=== PATIENT | male | born 1965 | race Caucasian/White ===

== ENCOUNTER 2021-03-02 10:01 | Inpatient (IN) ==
[2021-03-02] MEDS ORDERED: Albuterol/Ipratropium NEB.SOL (2.5/0.5 MG) 3 ML NEB.SOLN INH ONE (10:17)
[2021-03-02] MEDS ORDERED: methylPREDNISolone 125 mg 2 ML VIAL IV ONE (10:23)
[2021-03-02] MEDS ORDERED: Albuterol 2.5mg/3 ml (0.083%) NEB.SOLN INH ONE (10:24)
[2021-03-02 10:46] LABS: ABS Eosinophils 0.2 10^3/ul (0-0.6); ABS Lymphocytes 0.9 10^3/ul (1.0-4.8); ABS Monocytes 1.2 10^3/ul (0-0.8); ABS Neutrophils 11.4 10^3/ul (1.5-7.7); Eosinophil % 1.3 %; Hematocrit 46 % (42-52); Hemoglobin 15.9 g/dL (14.0-18.0); Lymphocyte % 6.4 %; Mean Corpuscular HGB Conc 35 g/dL (31-36); Mean Corpuscular Hemoglobin 31 pg (27-31); Mean Corpuscular Volume 88 fL (80-94); Mean Platelet Volume 8.7 fL (7.4-10.4); Platelet Count 447 10^3/uL (150-450); Red Blood Count 5.21 10^6 /uL (4.18-5.48); Red Cell Distribution Width 13 % (10-15); White Blood Count 13.7 10^3/uL (3.5-10.8)
[2021-03-02] MEDS ORDERED: Magnesium Sulfate 2 gm BAG 2 GM/50 ML BAG IVPB ONE (10:57)
[2021-03-02] MEDS ORDERED: Albuterol 0.5% CONC CONTINUOUS NEB.SOL 5 mg/ml 20 ml BOT INH ONE (10:59)
[2021-03-02 11:03] LABS: Albumin 3.9 g/dL (3.2-5.2); Albumin/Globulin Ratio 1.3 (1-3); Calcium 9.1 mg/dL (8.6-10.3); EGFR African American 124.1 (>60); EGFR Non-African American 102.6 (>60); Total Bilirubin 0.7 mg/dL (0.2-1.0); Total Protein 6.9 g/dL (6.4-8.9)
[2021-03-02] MEDS ORDERED: Al Hydrox/Mg Hydrox/Simet LIQ 30 ML UDC PO PRN (13:56)
[2021-03-02] MEDS ORDERED: Ondansetron 4 mg VIAL 2 MG/ML 2 ml VIAL IV PRN (13:56)
[2021-03-02] MEDS ORDERED: Levalbuterol HFA INHALER MDI INH PRN (14:06)
[2021-03-02] MEDS ORDERED: Levalbuterol 0.63MG/3ML NEB UNIT OF USE INH PRN (14:09)
[2021-03-02] MEDS: Albuterol/Ipratropium NEB.SOL (2.5/0.5 MG) 3 ML NEB.SOLN INH SCH ×2 (14:52→21:10)
[2021-03-02] MEDS: Enoxaparin 40 MG/0.4 ML SYR SUBCUT SCH (17:59)
[2021-03-03] MEDS: Albuterol/Ipratropium NEB.SOL (2.5/0.5 MG) 3 ML NEB.SOLN INH SCH ×4 (03:36→20:03)
[2021-03-03 05:31] LABS: ABS Basophils 0.1 10^3/ul (0-0.2); ABS Lymphocytes 1.3 10^3/ul (1.0-4.8); ABS Monocytes 1.5 10^3/ul (0-0.8); ABS Neutrophils 10.9 10^3/ul (1.5-7.7); Eosinophil % 0.2 %; Hematocrit 39 % (42-52); Hemoglobin 13.5 g/dL (14.0-18.0); Lymphocyte % 9.6 %; Mean Corpuscular HGB Conc 35 g/dL (31-36); Mean Corpuscular Hemoglobin 31 pg (27-31); Mean Corpuscular Volume 88 fL (80-94); Mean Platelet Volume 8.4 fL (7.4-10.4); Platelet Count 380 10^3/uL (150-450); Red Blood Count 4.39 10^6 /uL (4.18-5.48); Red Cell Distribution Width 13 % (10-15); White Blood Count 13.8 10^3/uL (3.5-10.8)
[2021-03-03 05:50] LABS: Calcium 8.7 mg/dL (8.6-10.3); EGFR African American 133.9 (>60); EGFR Non-African American 110.6 (>60); Potassium 3.9 mmol/L (3.5-5.0)
[2021-03-03] MEDS: Enoxaparin 40 MG/0.4 ML SYR SUBCUT SCH (17:27)
[2021-03-03 17:45] LABS: Vitamin D Total 25(OH) 18.4 ng/mL (20-50)
[2021-03-04] MEDS: Albuterol/Ipratropium NEB.SOL (2.5/0.5 MG) 3 ML NEB.SOLN INH SCH ×3 (02:04→13:44)
[2021-03-04 06:28] LABS: ABS Eosinophils 0.1 10^3/ul (0-0.6); ABS Lymphocytes 2.2 10^3/ul (1.0-4.8); ABS Monocytes 0.9 10^3/ul (0-0.8); ABS Neutrophils 8.3 10^3/ul (1.5-7.7); Eosinophil % 0.7 %; Hematocrit 37 % (42-52); Hemoglobin 12.6 g/dL (14.0-18.0); Lymphocyte % 19.3 %; Mean Corpuscular HGB Conc 34 g/dL (31-36); Mean Corpuscular Hemoglobin 30 pg (27-31); Mean Corpuscular Volume 90 fL (80-94); Mean Platelet Volume 8.7 fL (7.4-10.4); Platelet Count 398 10^3/uL (150-450); Red Blood Count 4.18 10^6 /uL (4.18-5.48); Red Cell Distribution Width 13 % (10-15); White Blood Count 11.5 10^3/uL (3.5-10.8)
[2021-03-04 06:47] LABS: Calcium 8.9 mg/dL (8.6-10.3); EGFR African American 127.9 (>60); EGFR Non-African American 105.7 (>60); Potassium 3.9 mmol/L (3.5-5.0)
[2021-03-04] MEDS ORDERED: Cholecalciferol (VIT D3) 1,000 unit TAB PO ONE (08:30)
[2021-03-04 12:41] VITALS: BP 118/71
[2021-03-04] MEDS: Enoxaparin 40 MG/0.4 ML SYR SUBCUT SCH (13:56)
== END 2021-03-04 15:20 | disposition home or self-care (01) | DRG 140 ==
LOC: ED 10:01 → MED 13:56
PROVIDERS: ADMIT Hospitalist; ATTEND Hospitalist

== ENCOUNTER 2021-04-09 01:42 | Inpatient (IN) ==
[2021-04-09] MEDS ORDERED: Midazolam 10 mg/10 ml VIAL 1 mg/ml 10 ml VIAL (10 mg) ONE (01:49)
[2021-04-09] MEDS ORDERED: Succinylcholine 200 mg VIAL 20 mg/ml 10 ml VIAL (200 mg) ONE (01:49)
[2021-04-09] MEDS ORDERED: Etomidate 40 mg/20 ml (2 MG/ML) 20 ml VIAL (40 mg) ONE (01:49)
[2021-04-09] MEDS ORDERED: Propofol 10 mg/ml 100 ML BTL 100 ML ONE (01:50)
[2021-04-09] MEDS ORDERED: Magnesium Sulfate 2 gm BAG 2 GM/50 ML BAG ONE (01:52)
[2021-04-09] MEDS ORDERED: NS 0.9% 1000 ml BAG 2,000 ML IV ONE (01:58)
[2021-04-09] MEDS ORDERED: Cefepime 2 GM in NS 0.9% 50 ML 50 ML IVPB ONE (01:58)
[2021-04-09] MEDS ORDERED: Magnesium Sulfate 2 gm BAG 2 GM/50 ML BAG IVPB ONE (01:59)
[2021-04-09] MEDS ORDERED: fentaNYL 100 mcg/2 ml 50 MCG/ML VIAL IV SLOW PU ONE (02:00)
[2021-04-09] MEDS ORDERED: methylPREDNISolone 125 mg 2 ML VIAL IV ONE (02:00)
[2021-04-09] MEDS ORDERED: methylPREDNISolone 125 mg 2 ML VIAL ONE (02:01)
[2021-04-09] MEDS ORDERED: NS 0.9% 50 ML 0 ML ONE (02:10)
[2021-04-09 02:23] LABS: ABS Basophils 0.1 10^3/ul (0-0.2); ABS Eosinophils 0.9 10^3/ul (0-0.6); ABS Lymphocytes 4.1 10^3/ul (4.0-13.5); ABS Monocytes 1.3 10^3/ul (0-0.8); Eosinophil % 6.1 %; Hematocrit 41 % (31-38); Hemoglobin 13.5 g/dL (10.3-14.1); Lymphocyte % 26.8 %; Mean Corpuscular HGB Conc 33 g/dL (32-37); Mean Corpuscular Hemoglobin 30 pg (24-30); Mean Corpuscular Volume 93 fL (68-85); Mean Platelet Volume 8.9 fL (7.4-10.4); Nucleated Red Blood Cells % 0.1; Platelet Count 356 10^3/uL (150-450); Red Blood Count 4.44 10^6 /uL (3.97-5.01); Red Cell Distribution Width 14 % (10-15); White Blood Count 15.4 10^3/uL (5.0-17.5)
[2021-04-09] MEDS ORDERED: Cefepime 2 GM in Dextrose 2 GM/50 ML BAG IV ONE (02:25)
[2021-04-09] MEDS: Albuterol/Ipratropium NEB.SOL (2.5/0.5 MG) 3 ML NEB.SOLN INH SCH ×5 (02:26→19:29)
[2021-04-09 02:33] LABS: ALT 17 U/L (7-52); AST 32 U/L (13-39); Albumin/Globulin Ratio 1.5 (1-3); Alkaline Phosphatase 69 U/L (122-469); Anion Gap 7 mmol/L (2-11); Blood Urea Nitrogen 10 mg/dL (6-24); C Reactive Protein 10.32 mg/L (<8.01); CO2 Carbon Dioxide 29 mmol/L (23-33); Calcium 8.9 mg/dL (8.6-10.3); Chloride 101 mmol/L (101-111); Creatine Kinase 132 U/L (10-223); Globulin 2.7 g/dL (2-4); Glucose 240 mg/dL (70-100); Potassium 4.2 mmol/L (3.5-5.0); Sodium 137 mmol/L (130-145); Total Protein 6.7 g/dL (6.4-8.9)
[2021-04-09 02:36] LABS: Troponin I 0.01 ng/mL (<0.03)
[2021-04-09 02:46] LABS: PO2 Arterial 347 mmHg (80-100)
[2021-04-09 02:48] LABS: PCO2 Arterial 107 mmHg (35-45)
[2021-04-09] MEDS ORDERED: Cefepime 2 GM IV - ED ONCE IV ONE (03:00)
[2021-04-09] MEDS ORDERED: fentaNYL INFUSION BAG 50MCG/ML 2,500 MCG/50 ML BAG IV SCH (04:00)
[2021-04-09] MEDS ORDERED: Propofol 10 mg/ml 100 ML BTL 100 ML IV SCH (04:00)
[2021-04-09] MEDS ORDERED: Midazolam 2 mg/2 ml VIAL 1 mg/ml 2 ml VIAL (2 mg) IV SLOW PU ONE (04:12)
[2021-04-09 04:37] LABS: Alcohol, S 26 mg/dL (<10)
[2021-04-09 04:39] LABS: Magnesium 2.1 mg/dL (1.9-2.7)
[2021-04-09] MEDS ORDERED: Ondansetron 4 mg VIAL 2 MG/ML 2 ml VIAL IV ONE (04:44)
[2021-04-09] MEDS ORDERED: Midazolam 5 mg/ml concentrated 5 mg/ml 1 ml VIAL ONE (04:48)
[2021-04-09] MEDS ORDERED: Midazolam 10 mg/10 ml VIAL 1 mg/ml 10 ml VIAL (10 mg) IV SLOW PU ONE ×3 (04:48→04:56)
[2021-04-09] MEDS ORDERED: Rocuronium 50 mg VIAL 10 mg/ml 5 ml VIAL (50 mg) IV ONE (04:48)
[2021-04-09] MEDS ORDERED: Albuterol/Ipratropium NEB.SOL (2.5/0.5 MG) 3 ML NEB.SOLN INH SCH ×2 (05:00→12:00)
[2021-04-09 05:16] LABS: PCO2 Arterial 66 mmHg (35-45); PO2 Arterial 88 mmHg (80-100)
[2021-04-09 05:29] LABS: Influenza A Molecular Negative (Negative); Influenza B Molecular Negative (Negative)
[2021-04-09] MEDS: Azithromycin 500 mg/250 ml NS 500 MG/250 ML BAG IVPB SCH (06:00)
[2021-04-09] MEDS: Pantoprazole VIAL 40 MG VIAL IV SCH (06:48)
[2021-04-09] MEDS: Chlorhexidine MOUTHWASH 0.12% 15 ML UDC SWISH SPIT SCH ×5 (06:48→20:53)
[2021-04-09] MEDS ORDERED: methylPREDNISolone SOD 40 mg/ml 1 ml VIAL IV SCH (08:00)
[2021-04-09] MEDS: Enoxaparin 40 MG/0.4 ML SYR SUBCUT SCH (08:01)
[2021-04-09 08:18] LABS: Urine Appearance Cloudy; Urine Bilirubin Negative (Negative); Urine Blood 3+ (Negative); Urine Color Yellow; Urine Glucose Negative (Negative); Urine Ketones Trace (Negative); Urine Nitrite Negative (Negative); Urine Protein 1+(30 mg/dL) (Negative); Urine Specific Gravity 1.023 (1.002-1.030); Urine Urobilinogen Negative (Negative)
[2021-04-09 08:20] LABS: Urine Bacteria Absent (Absent); Urine Red Blood Cell 3+(>10/hpf) (Absent); Urine Squamous Epithelial Cell Present (Absent); Urine White Blood Cell Trace(0-5/hpf) (Absent)
[2021-04-09 08:40] LABS: Urine Benzodiazepine Screen Presumptive Positive (None Detect); Urine Cannabinoids Screen None Detected (None Detect); Urine Opiates Screen None Detected (None Detect)
[2021-04-09] MEDS ORDERED: Tiotropium Brom/Olodaterol MDI INH SCH (09:00)
[2021-04-09] MEDS ORDERED: SPIRIVA Respimat (tiotropium) 2.5 mcg/inh Inhaler INH SCH (09:00)
[2021-04-09] MEDS: Multivitamins/Minerals TAB PO SCH ×2 (09:35→10:42)
[2021-04-09 10:55] LABS: PCO2 Arterial 43 mmHg (35-45); PO2 Arterial 77 mmHg (80-100)
[2021-04-09] MEDS: Thiamine 100 MG/ML 2 ml VIAL 100 MG in NS 0.9% 50 ML 50 ML IV SCH (10:59)
[2021-04-09] MEDS ORDERED: Thiamine 100 MG/ML 2 ml VIAL 100 MG, Folic Acid IV 1 MG, Multiple Vitamin IV ADULT 10 M... IV ONE (11:00)
[2021-04-09] MEDS ORDERED: Thiamine IV 100 MG, Folic Acid IV 1 MG, Multiple Vitamin IV ADULT 10 ML in D5NS 0.9% 10... IVPB ONE (11:25)
[2021-04-09] MEDS: methylPREDNISolone SOD 40 mg/ml 1 ml VIAL IV SCH ×3 (13:47→23:26)
[2021-04-09 16:09] LABS: PCO2 Arterial 37 mmHg (35-45); PO2 Arterial 346 mmHg (80-100)
[2021-04-09] MEDS: Cefepime 2 GM in Dextrose 2 GM/50 ML BAG IV SCH (17:27)
[2021-04-10] MEDS: Albuterol/Ipratropium NEB.SOL (2.5/0.5 MG) 3 ML NEB.SOLN INH SCH ×3 (00:59→23:23)
[2021-04-10] MEDS: Chlorhexidine MOUTHWASH 0.12% 15 ML UDC SWISH SPIT SCH ×2 (02:32→05:43)
[2021-04-10] MEDS: Cefepime 2 GM in Dextrose 2 GM/50 ML BAG IV SCH (04:05)
[2021-04-10] MEDS: methylPREDNISolone SOD 40 mg/ml 1 ml VIAL IV SCH ×2 (05:56→17:20)
[2021-04-10] MEDS: Azithromycin 500 mg/250 ml NS 500 MG/250 ML BAG IVPB SCH (05:56)
[2021-04-10] MEDS: Pantoprazole VIAL 40 MG VIAL IV SCH (05:56)
[2021-04-10 06:07] LABS: Hematocrit 36 % (42-52); Hemoglobin 11.9 g/dL (14.0-18.0); Mean Corpuscular HGB Conc 33 g/dL (31-36); Mean Corpuscular Hemoglobin 30 pg (27-31); Mean Corpuscular Volume 90 fL (80-94); Mean Platelet Volume 8.5 fL (7.4-10.4); Platelet Count 262 10^3/uL (150-450); Red Blood Count 3.98 10^6 /uL (4.18-5.48); Red Cell Distribution Width 14 % (10-15); White Blood Count 16.1 10^3/uL (3.5-10.8)
[2021-04-10 06:25] LABS: Calcium 8.5 mg/dL (8.6-10.3); EGFR Non-African American 104.1 (>60); Potassium 3.8 mmol/L (3.5-5.0)
[2021-04-10] MEDS: Multivitamins/Minerals TAB PO SCH (08:03)
[2021-04-10] MEDS: Thiamine 100 MG/ML 2 ml VIAL 100 MG in NS 0.9% 50 ML 50 ML IV SCH (08:04)
[2021-04-10] MEDS: Enoxaparin 40 MG/0.4 ML SYR SUBCUT SCH (08:04)
[2021-04-10] MEDS ORDERED: Potassium Chloride LIQUID 20 MEQ/15 ML LIQUID PO ONE (08:55)
[2021-04-10] MEDS: cefTRIAXone 1 gm/50 mL NS BAG 1 GM/50 ML BAG IVPB SCH (09:22)
[2021-04-10] MEDS ORDERED: Albuterol/Ipratropium NEB.SOL (2.5/0.5 MG) 3 ML NEB.SOLN INH PRN ×2 (10:15→21:57)
[2021-04-10] MEDS ORDERED: Lactated Ringers 500 ml BAG 500 ML IV ONE (10:54)
[2021-04-10] MEDS ORDERED: Lactated Ringers 1000 ml BAG 1,000 ML IV SCH (10:54)
[2021-04-11] MEDS: Albuterol/Ipratropium NEB.SOL (2.5/0.5 MG) 3 ML NEB.SOLN INH SCH ×5 (03:11→18:59)
[2021-04-11] MEDS: methylPREDNISolone SOD 40 mg/ml 1 ml VIAL IV SCH ×2 (05:17→17:09)
[2021-04-11] MEDS: Pantoprazole VIAL 40 MG VIAL IV SCH (05:21)
[2021-04-11] MEDS: Azithromycin 500 mg/250 ml NS 500 MG/250 ML BAG IVPB SCH (05:21)
[2021-04-11 05:33] LABS: Hematocrit 35 % (42-52); Hemoglobin 11.5 g/dL (14.0-18.0); Mean Corpuscular HGB Conc 33 g/dL (31-36); Mean Corpuscular Hemoglobin 30 pg (27-31); Mean Corpuscular Volume 91 fL (80-94); Platelet Count 265 10^3/uL (150-450); Red Blood Count 3.84 10^6 /uL (4.18-5.48); Red Cell Distribution Width 15 % (10-15)
[2021-04-11 05:50] LABS: Calcium 8.7 mg/dL (8.6-10.3); EGFR African American 138.2 (>60); EGFR Non-African American 114.2 (>60); Magnesium 1.9 mg/dL (1.9-2.7); Phosphorus 3.6 mg/dL (2.5-5.0); Potassium 3.8 mmol/L (3.5-5.0)
[2021-04-11] MEDS: Multivitamins/Minerals TAB PO SCH (08:52)
[2021-04-11] MEDS: cefTRIAXone 1 gm/50 mL NS BAG 1 GM/50 ML BAG IVPB SCH (08:54)
[2021-04-11] MEDS: Enoxaparin 40 MG/0.4 ML SYR SUBCUT SCH (08:54)
[2021-04-12] MEDS: Albuterol/Ipratropium NEB.SOL (2.5/0.5 MG) 3 ML NEB.SOLN INH SCH ×3 (01:50→11:41)
[2021-04-12] MEDS: methylPREDNISolone SOD 40 mg/ml 1 ml VIAL IV SCH (05:31)
[2021-04-12] MEDS: Azithromycin 500 mg/250 ml NS 500 MG/250 ML BAG IVPB SCH (05:31)
[2021-04-12] MEDS: Pantoprazole VIAL 40 MG VIAL IV SCH (05:32)
[2021-04-12 06:25] LABS: ABS Lymphocytes 1.4 10^3/ul (1.0-4.8); ABS Monocytes 0.8 10^3/ul (0-0.8); ABS Neutrophils 11.1 10^3/ul (1.5-7.7); Hematocrit 36 % (42-52); Lymphocyte % 10.7 %; Mean Corpuscular HGB Conc 34 g/dL (31-36); Mean Corpuscular Hemoglobin 30 pg (27-31); Mean Corpuscular Volume 90 fL (80-94); Mean Platelet Volume 8.8 fL (7.4-10.4); Nucleated Red Blood Cells % 0.1; Platelet Count 258 10^3/uL (150-450); Red Blood Count 3.96 10^6 /uL (4.18-5.48); Red Cell Distribution Width 15 % (10-15); White Blood Count 13.4 10^3/uL (3.5-10.8)
[2021-04-12 06:41] LABS: Albumin 3.3 g/dL (3.2-5.2); Albumin/Globulin Ratio 1.6 (1-3); EGFR African American 150.1 (>60); EGFR Non-African American 124.1 (>60); Globulin 2.1 g/dL (2-4); Potassium 3.8 mmol/L (3.5-5.0); Total Bilirubin 0.2 mg/dL (0.2-1.0); Total Protein 5.4 g/dL (6.4-8.9)
[2021-04-12] MEDS: cefTRIAXone 1 gm/50 mL NS BAG 1 GM/50 ML BAG IVPB SCH (09:00)
[2021-04-12] MEDS: Enoxaparin 40 MG/0.4 ML SYR SUBCUT SCH (09:00)
[2021-04-12] MEDS: Multivitamins/Minerals TAB PO SCH (09:00)
[2021-04-12 11:27] VITALS: BP 131/83
[2021-04-16 15:22] LABS: Alpha 1 Antitrypsin A1A 135 mg/dL (100 - 190)
== END 2021-04-12 12:47 | disposition home or self-care (01) | DRG 133 ==
LOC: EDBD → ED 01:42 → MERGE 03:52 → ICU 03:52 → MEDTELE 04-10 15:57
PROVIDERS: ADMIT Internal Medicine; ATTEND Pediatrics